=== PATIENT | male | born 1935 | race Caucasian/White ===

== ENCOUNTER 2018-01-26 10:58 | Day surgery (SDC) | payer MEDICARE, BC ==
[2018-01-23 15:06] VITALS: BMI 36.4
[~2018-01-26 10:58] MED LIST: LACTATED RINGERS 1,000 ML IV SCH; MORPHINE SULFATE 2 MG/ML SYRINGE IV PRN; SODIUM CHLORIDE 0.9% 1,000 ML IV SCH; ceFAZolin 1,000 MG in SODIUM CHLORIDE 0.9% IRRIGATIO 250 ML IRRIGATION ONE; ceFAZolin IN SWFI 2 GM/20 ML SYRINGE IVP ONE
[2018-01-26 11:52] LABS: Basophils % (A) 0 %; Eosinophils # (A) 0.3 k/uL (0-0.7); Eosinophils % (A) 3 %; HCT 47.3 % (39.0-53.0); HGB 15.2 gm/dL (13.0-17.5); Lymphocytes # (A) 1.6 k/uL (1.0-4.8); Lymphocytes % (A) 17 %; MCH 29.5 pg (25.0-35.0); MCHC 32.2 g/dL (31.0-37.0); MCV 91.6 fL (80.0-100.0); Mean Platelet Volume 7.4; Monocytes # (A) 0.7 k/uL (0-1.0); Monocytes % (A) 8 %; Neutrophils # (A) 6.2 k/uL (1.3-7.7); Neutrophils % (A) 70 %; Platelet Count 205 k/uL (150-450); RBC 5.16 m/uL (4.30-5.90); RDW 13.7 % (11.5-15.5); WBC 8.9 k/uL (3.8-10.6)
[2018-01-26 11:59] LABS: Calcium 9.2 mg/dL (8.4-10.2); Potassium 5.2 mmol/L (3.5-5.1)
[2018-01-26] MEDS ORDERED: SODIUM CHLORIDE 0.9% 1,000 ML IV ONE (12:05)
[2018-01-26] MEDS ORDERED: ACETAMINOPHEN TAB 325 MG TAB PO PRN (13:15)
[2018-01-26] MEDS ORDERED: HYDROcodone/APAP 5-325MG 1 EACH TAB PO PRN (13:15)
[2018-01-26] MEDS ORDERED: ACETAMINOPHEN IV (For NPO) 1,000 MG in EMPTY BAG 1 BAG IVPB ONE (13:15)
[2018-01-26] MEDS ORDERED: PROPOFOL 10 MG/ML 20 ML VIAL IV ONE (13:38)
[2018-01-26] MEDS ORDERED: MIDAZOLAM 2 MG/2 ML VIAL ONE (13:38)
[2018-01-26] MEDS ORDERED: fentaNYL (PF) 50 MCG/ML 2 ML AMP ONE (13:38)
[2018-01-26] MEDS ORDERED: LIDOCAINE 1% INJ 10MG/ML (20 ML MDV) ONE ×2 (13:57)
[2018-01-26] MEDS ORDERED: ceFAZolin IN SWFI 2 GM/20 ML SYRINGE IVP ONE (14:11)
[2018-01-26] MEDS ORDERED: LIDOCAINE 1% INJ 10MG/ML (20 ML MDV) SQ ONE (14:20)
[2018-01-26] MEDS ORDERED: FUROSEMIDE 20 MG TAB PO PRN (14:56)
--- NOTE | 2018-01-26 17:32 | PCN ---
PROCEDURE NOTE The patient has a single-chamber ICD which is on advisory and device alert for battery performance, battery performance alert was noted in the last week and he is brought which necessitated an ICD generator change as an indicator of premature battery depletion risk. He is brought to the EP lab in a fasting state. Written informed consent was obtained prior to the procedure. The left shoulder area was prepped and draped as per protocol. 1% lidocaine was used for local anesthesia. A 4 cm incision was made directly over the previous surgical site and carried down to the level of the generator. The generator was explanted a partial capsulectomy was performed and a new generator was implanted. The new generator was an Ellipse VR 1411-36 C, serial #[id number]. The chronic pacing threshold was 1.4 V at 0.5 milliseconds. R-waves greater than 12 mV. Pacing impedance 480 ohms, shocking impedance 70 ohms. The wounds and the new generator was implanted and the wound was closed in 3 layers and dressed per protocol. DFT testing under anesthesia: Shock and T-wave protocol was used to induce ventricular fibrillation. This was adequately and appropriately detected at least sensitivity and successfully internally defibrillated with a 10-joule shock. Charge time of 1.9 seconds, shock impedance of 70 ohms. RESULT: Successful single-chamber ICD generator change. 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 History of congestive heart failure. PLAN: IV antibiotics and discharged home after completion of IV antibiotics. Follow up in the device clinic in 5 days. MMODL / IJN: [id number] /
[2018-01-26] MEDS: DORZOLAMIDE-TIMOLOL 2.23%/0.68 10ML BTL BOTH EYES SCH ×2 (17:39→19:49)
[2018-01-26] MEDS: ceFAZolin IN SWFI 2 GM/20 ML SYRINGE IVP SCH ×2 (17:39→23:12)
[2018-01-26] MEDS: APIXABAN 2.5 MG TABLET PO SCH (19:49)
[2018-01-26] MEDS ORDERED: PRAVASTATIN SODIUM 20 MG TAB PO SCH (21:00)
[2018-01-26] MEDS ORDERED: METOPROLOL SUCCINATE (ER) 50 MG TAB.ER.24H PO SCH (21:00)
[2018-01-27] MEDS: ceFAZolin IN SWFI 2 GM/20 ML SYRINGE IVP SCH ×2 (05:33→11:35)
[2018-01-27] MEDS: APIXABAN 2.5 MG TABLET PO SCH (07:50)
[2018-01-27] MEDS: DORZOLAMIDE-TIMOLOL 2.23%/0.68 10ML BTL BOTH EYES SCH (07:52)
[2018-01-27 08:10] VITALS: BP 174/91; PULSE 71; RESP 16; TEMP 98.1
--- NOTE | 2018-01-27 08:16 | P.DS ---
Providers Attending physician: Best Covarrubias Primary care physician: Stated None Hospital Course: Patient is doing well. He underwent a single chamber ICD generator change for device on advisedly with an advisedly alert for battery depletion ICD site is healing well there is no hematoma there is no swelling line blood pressure is normal heart rates are normal vitals are stable he's sitting up comfortably in bed Breath sounds are clear no rhonchi no crackles Heart sounds. Normal no murmurs no gallop or rub Abdomen soft nontender Extremities warm no edema impression History of ischemic cardio myopathy and congestive heart failure with a single chamber ICD for primary prevention of sudden cardiac status post ICD generator change yesterday. Patient will go home today and will follow-up in the device clinic in 5 days after completion of IV antibiotics. No changes in medications Plan - Discharge Summary Discharge Rx Participant: No New Discharge Prescriptions: Continue Dorzolamide HCl/Timolol Maleat [Cosopt Eye Drops] 1 drop BOTH EYES TID Pravastatin Sodium [Pravachol] 10 mg PO HS Enalapril [Vasotec] 5 mg PO DAILY Aspirin 81 mg PO DAILY Furosemide [Lasix] 10 mg PO DIRECTED PRN PRN Reason: Edema Metoprolol Succinate (ER) [Toprol XL] 50 mg PO HS Apixaban [Eliquis] 2.5 mg PO BID Pilocarpine 1 drop BOTH EYES TID Latanoprost 1 drop BOTH EYES TID Brimonidine 1 drop BOTH EYES TID Discharge Medication List Aspirin 81 mg PO DAILY 10/07/14 [History] Dorzolamide HCl/Timolol Maleat [Cosopt Eye Drops] 1 drop BOTH EYES TID 10/07/14 [History] Enalapril [Vasotec] 5 mg PO DAILY 10/07/14 [History] Pravastatin Sodium [Pravachol] 10 mg PO HS 10/07/14 [History] Furosemide [Lasix] 10 mg PO DIRECTED PRN 10/08/14 [History] Metoprolol Succinate (ER) [Toprol XL] 50 mg PO HS 07/30/15 [History] Apixaban [Eliquis] 2.5 mg PO BID 01/23/18 [History] Brimonidine 1 drop BOTH EYES TID 01/23/18 [History] Latanoprost 1 drop BOTH EYES TID 01/23/18 [History] Pilocarpine 1 drop BOTH EYES TID 01/23/18 [History] Follow up Appointment(s)/Referral(s): Best Covarrubias MD [STAFF PHYSICIAN] - 1 Week (Device clinic follow-up in 5 days Follow-up with Dr. Mcgregor in 4-6 months or as previously scheduled) Activity/Diet/Wound Care/Special Instructions: PATIENT EDUCATION MATERIAL Instructions following a heart rhythm device implant. 1. Keep dressing DRY for 5 DAYS. You may cover the area with Saran or Cling Wrap, prior to a shower. 2. The dressing will be removed in the Device Clinic at [facility]. Absorbable sutures were used to close the wound. 3. Avoid raising the left arm above the shoulder level. 1 week restriction 4. Avoid arm movements, like backscratching, rubbing the head, or pulling on a cord. 4 weeks restriction 5. Gentle range of motion movements of the shoulder, closest to the incision should be performed to avoid a frozen shoulder. (Pendulum exercises of the shoulder) 6. The opposite arm may be used freely. 7. Avoid driving for 7 days. 8. Avoid activities such as golfing, swimming, weed whacking, lifting more than 10 pounds weight, bowling, gymnastics and weight training/lifting. (6 weeks restriction) 9. Activities such as wood chopping with an axe, pull-ups in the gymnasium, power lifting, arc-welding, being close to home induction cooktops will always be a problem. 10. Arm sling is only a reminder not to raise the arm above the head. You do not need to keep the arm completely immobilized. Your free to move the arm and use it and for normal activities. In case of any problems, please call [facility], Randee Spann, @ [phone], Attention: Device Clinic Device clinic follow-up in 5 days Follow-up with primary assembly technician in 4 months Discharge Disposition: HOME SELF-CARE
[2018-01-27] MEDS ORDERED: ASPIRIN 81 MG PO SCH (09:00)
[2018-01-27] MEDS ORDERED: LISINOPRIL 10 MG TAB PO SCH (09:00)
== END 2018-01-27 12:15 | disposition home or self-care (01) ==
LOC: CATHEP 10:58 → 1SOBS 14:56 → CATHEP 01-27 12:15
PROVIDERS: ATTEND Internal Medicine Clinical Cardiac Electrophysiology
DX: I25.5 Ischemic cardiomyopathy (principal); Z45.02 Encounter for adjustment and management of automatic implantable cardiac defibrillator; I24.0 Acute coronary thrombosis not resulting in myocardial infarction; I11.0 Hypertensive heart disease with heart failure; I50.22 Chronic systolic (congestive) heart failure; Z95.1 Presence of aortocoronary bypass graft; I47.1 Supraventricular tachycardia; E78.5 Hyperlipidemia, unspecified; I73.9 Peripheral vascular disease, unspecified; Z82.49 Family history of ischemic heart disease and other diseases of the circulatory system; Z79.01 Long term (current) use of anticoagulants; Z79.82 Long term (current) use of aspirin; Z79.899 Other long term (current) drug therapy
CPT/HCPCS: 93641; 33262; 80048; 85025; C1722; J2250; J0690 ×3; J2001; J3010; J2704